=== PATIENT | male | born 1970 | race African-American/Black ===

== ENCOUNTER 2024-09-02 09:44 | Emergency (ER) | payer OTHER, SELFPAY ==
[2024-09-02 09:55] VITALS: BP 165/111; PULSE 90; RESP 16; TEMP 36.5; O2SAT 95; BMI 41.3
--- NOTE | 2024-09-02 10:03 | ECG_ITS ---
Test Reason : htn Blood Pressure : */* mmHG Vent. Rate : 80 BPM Atrial Rate : 80 BPM P-R Int : 152 ms QRS Dur : 78 ms QT Int : 380 ms P-R-T Axes : 29 22 33 degrees QTcB Int : 438 ms Normal sinus rhythm Normal ECG No previous ECGs available Referred By: Generic ED Physician Electronically Signed By: EUNICE KLEIN MD
[2024-09-02 10:21] LABS: MANUAL DIFF FLAG NO
[2024-09-02 10:23] LABS: Basophils Absolute Auto 0.1 X10*3/uL (0.0-0.2); Basophils Percent Auto 0.6 % (0-2); Eosinophils Absolute Auto 0.1 X10*3/uL (0.0-0.4); Eosinophils Percent Auto 1.1 % (0-4); Hematocrit 41.6 % (42.0-52.0); Imm Gran Abs Auto 0.03 X10*3/uL (0.00-0.03); Imm Gran Pct Auto 0.4 % (0.0-0.4); Lymphocytes Percent Auto 25.2 % (20-40); Mean Corpuscular HGB Conc 33.7 g/dl (31.0-36.0); Mean Corpuscular Hemoglobin 30.4 pg (27.0-33.0); Mean Corpuscular Volume 90.2 fL (80.0-98.0); Mean Platelet Volume 9.7 fL (9.4-12.4); Monocytes Absolute Auto 0.8 X10*3/uL (0.1-1.2); Monocytes Percent Auto 10.1 % (2-11); Neutrophils Absolute Auto 5.1 x10*3/uL (2.0-8.3); Neutrophils Percent Auto 62.6 % (45-73); Platelet Count 229 X10*3/uL (160-400); Red Blood Count 4.61 X10*6/uL (4.60-5.80); Red Cell Distribution Width 13.2 % (11.0-16.0); White Blood Count 8.1 X10*3/uL (4.8-10.8)
[2024-09-02 10:43] LABS: Troponin-I High Sensitivity 4.5 ng/L (<3.5-35.0)
[2024-09-02 10:44] LABS: Alanine Aminotransferase 30 U/L (0-40); Alkaline Phosphatase 79 U/L (39-117); Anion Gap 11 (12-20); Aspartate Amino Transferase 33 U/L (5-37); Bilirubin Total 0.3 mg/dL (0.0-1.0); Blood Urea Nitrogen 16 mg/dL (9-16); Calcium 8.7 mg/dL (8.4-10.2); Carbon Dioxide 24 mmol/L (22-29); Chloride 108 mmol/L (96-108); Creatinine Clr Calc Pharmacy 112.9; Estimated Glomerular Filt Rate > 60; Glucose Random 87 mg/dL (60-115); Potassium 3.8 mmol/L (3.3-5.1); Sodium 139 mmol/L (135-145); Total Protein 6.7 g/dL (6.5-8.0)
[2024-09-02 10:49] LABS: IDNOW Serial# 58CA691E; Strep A Nucleic Acid Negative (Negative)
[2024-09-02 11:15] LABS: Influenza A PCR NEGATIVE (Negative); Influenza B PCR NEGATIVE (Negative); Resp Syncy Virus RNA Qual PCR NEGATIVE (Negative); SARS COV2 PCR INHOUSE NEGATIVE (Negative)
--- NOTE | 2024-09-02 11:34 | ED.URI ---
HPI - URI/Sore Throat General Chief Complaint: Upper Respiratory Symptoms Stated Complaint: Sore throat Time Seen by Provider: 09/02/24 11:18 Source: patient and old records reviewed Mode of arrival: ambulatory Limitations: no limitations History of Present Illness ED Provider: ANABELLE SEBASTIAN Narrative: 54 yo male no known PMH but he doesn't go to the doctors he comes in today with c/o 2 days sore throat, chills, hurts to swallow. He does work at a factory. He has no n/v/d, no chest pain. He has taken OTC with some help. MD elicited complaint: sore throat Onset (ago): day(s) (2) Consistency: constant Severity: moderate Description of mucous: clear Able to tolerate fluids by mouth: Yes Exacerbating factors: swallowing Relieving factors: nothing Associated symptoms: chills Treatments prior to arrival: cold medicine Related Data Previous Rx's ?Medication ?Instructions ?Recorded amoxicillin 500 mg tablet 500 mg PO BID #20 tabs 09/02/24 hydrochlorothiazide 25 mg tablet 25 mg PO DAILY #30 tabs 09/02/24 Allergies Allergy/AdvReac Type Severity Reaction Status Date / Time No Known Allergies Allergy Verified 09/02/24 09:58 Review of Systems Review of Systems: Constitutional : positive Fever, positive Chills ENT/Mouth : positive sore throat, no runny nose Eyes: No Discharge Cardiovascular : No Chest Pain, No SOB Respiratory : No Cough, No Sputum Gastrointestinal : No Nausea, No Vomiting, No Diarrhea Genitourinary : No Dysuria, No Urinary Frequency Musculoskeletal : positive Myalgia Skin : No rash Neuro : No Headache all other systems reviewed and are negative [facility] Past Medical History Attestation statement: The following information was validated with the patient. Source: old records reviewed Medical History (Updated 09/02/24 @ 11:51 by Janneth Peraza DO) No pertinent past medical history Social History Social History (Updated 09/02/24 @ 11:51 by Janneth Peraza DO) Patient Tobacco Use Status: Never used Tobacco Physical Exam Vital Signs: Vital Signs: Last Vital Signs Temp 97.7 F 09/02/24 09:55 Pulse 90 09/02/24 09:55 Resp 16 09/02/24 09:55 BP 165/111 H 09/02/24 09:55 Pulse Ox 95 09/02/24 09:55 O2 Del Method Room Air 09/02/24 09:55 BMI result Body Mass Index 41.3 Appearance: Alert. Oriented X3. No acute distress. Eyes: Pupils equal, round and reactive to light. ENT: Pharynx moderate swelling of tonsils with white exudates and petechia on soft palate, uvula midline no other sig swelling normal voice no stridor tolerating secretions Neck: Normal inspection. Neck supple. CVS: Normal heart rate and rhythm. Pulses normal. Respiratory: No respiratory distress. Breath sounds normal. Abdomen: Soft and nontender. Skin: Skin warm and dry. Normal skin color. Normal skin turgor. Extremities: No lower extremity edema. No calf ttp Neuro: Oriented X 3. No motor deficit. No sensory deficit. 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 Differential Diagnosis Differential Diagnoses: The differential diagnosis associated with the presentation includes strep throat, viral syndrome untreated HTN Admission/Observation Consideration of admission/observation: Escalation of care including admission/observation considered not toxic can be managed as outpatient Lab Data [facility] Lab Attestation statement: I reviewed the patient's lab results. 09/02/24 10:16 09/02/24 10:16 Labs: Lab Results 09/02/24 Range/Units 10:16 WBC 8.1 (4.8-10.8) X10*3/uL RBC 4.61 (4.60-5.80) X10*6/uL Hgb 14.0 (14.0-18.0) g/dl Hct 41.6 L (42.0-52.0) % MCV 90.2 (80.0-98.0) fL MCH 30.4 (27.0-33.0) pg MCHC 33.7 (31.0-36.0) g/dl RDW 13.2 (11.0-16.0) % Plt Count 229 (160-400) X10*3/uL MPV 9.7 (9.4-12.4) fL Immature Gran % (Auto) 0.4 (0.0-0.4) % Neut % (Auto) 62.6 (45-73) % Lymph % (Auto) 25.2 (20-40) % [place] % (Auto) 10.1 (2-11) % Eos % (Auto) 1.1 (0-4) % Baso % (Auto) 0.6 (0-2) % Lymph # (Auto) 2.0 (1.2-4.9) X10*3/uL [place] # (Auto) 0.8 (0.1-1.2) X10*3/uL Eos # (Auto) 0.1 (0.0-0.4) X10*3/uL Baso # (Auto) 0.1 (0.0-0.2) X10*3/uL Abs Immat Gran (auto) 0.03 (0.00-0.03) X10*3/uL Absolute Neuts (auto) 5.1 (2.0-8.3) x10*3/uL Absolute Nucleated RBC 0.000 (0.0-0.012) X10*3/uL Nucleated RBC % (auto) 0.0 (0.0-0.2) /100WBC Sodium 139 (135-145) mmol/L Potassium 3.8 (3.3-5.1) mmol/L Chloride 108 (96-108) mmol/L Carbon Dioxide 24 (22-29) mmol/L Anion Gap 11 L (12-20) BUN 16 (9-16) mg/dL Creatinine 1.07 (0.5-1.4) mg/dL Estim Creat Clear Calc 112.9 Estimated GFR > 60 Random Glucose 87 (60-115) mg/dL Calcium 8.7 (8.4-10.2) mg/dL Total Bilirubin 0.3 (0.0-1.0) mg/dL AST 33 (5-37) U/L ALT 30 (0-40) U/L Alkaline Phosphatase 79 (39-117) U/L Troponin I High Sens 4.5 (<3.5-35.0) ng/L Total Protein 6.7 (6.5-8.0) g/dL Albumin 4.0 (3.5-5.0) g/dL Influenza Type A (PCR) NEGATIVE (Negative) Influenza Type B (PCR) NEGATIVE (Negative) RSV RNA Qual (PCR) NEGATIVE (Negative) SARS-CoV-2 RNA (RT-PCR) NEGATIVE (Negative) S. pyogenes GrpA CUATE Negative (Negative) Independent Interpretation I performed an independent interpretation of an: EKG Interpretation: Rate: 80 Rhythm: NSR [place]: normal Normal P waves. Normal JEAN-CLAUDE. Normal QRS complex. ST T wave : normal no SERENA qTC: 438 prior studies: no acute ischemia The study has been interpreted contemporaneously by me. . External Record Review External record reviewed: Outpatient record Prescription Management I considered prescription management with: Antibiotic and Other Discharge Plan Discharge Clinical Impression: Pharyngitis Patient Disposition: Home, Self-Care Instructions: Pharyngitis (ED), Chronic Hypertension (ED) Additional Instructions: labs, EKG reassuring your blood pressure is high - please get a cuff and measure if it remains over 140 top number after treatment please start medications call to follow up with your doctor return for worsening pain, difficulty breathing or swallowing and no improvement after 48 hours throw away tooth brush in 24 hours On amoxicillin, softer bowel movements are to be expected. Call your provider if you move your bowels more than 4 times a day, your bowel movements are almost all liquid, or you get a rash.? Prescriptions: New amoxicillin 500 mg tablet 500 mg PO BID Qty: 20 0RF hydrochlorothiazide 25 mg tablet 25 mg PO DAILY Qty: 30 0RF Interventions: ED Discharge Assessment Last Done: 09/02/24 11:47 Print Language: Faroese
[2024-09-02 11:47] VITALS: BP 171/110; PULSE 85; RESP 16; TEMP 36.5; O2SAT 98
--- OUTSIDE RECORDS SUMMARY | 2024-09-02 14:16 | XMS_ITS | Clinical Summary ---
Author Organization [facility] Address [address] [place] [address] Phone Care Team Providers Care Yarder Engineer Name Role Phone Physician, No Pcp Primary Care Provider Unavaila ble Allergies No known active allergies Medications No known medications Active Problems No known active problems Encounters Date Type Department Care Team Description 08/13/2024 - 08/13/2024 6:49 PM EDT Emergency [facility] Emergency [address] [place] [address] Discharge Disposition: ED Dismiss - Never Arrived 07/28/2024 12:05 PM EDT - 07/28/2024 2:58 PM EDT Emergency [facility] Emergency [address] [place] [address] Influenza B (Primary Dx); Viral syndrome Discharge Disposition: Home or Self Care from Last 3 Months Social History Tobacco Use Types Packs/Day Years Used Date Smoking Tobacco: Never Assessed Sex and Gender Information Value Date Recorded Sex Assigned at Male 07/28/2024 2:23 PM EDT Legal Sex Male 12:13 PM EST Gender Identity Male 07/28/2024 2:23 PM EDT Sexual Orientation Straight 07/28/2024 2: 23 PM EDT Obstetrics History Last Filed Vital Signs Vital Sign Reading Time Taken Comments Blood Pressure 141/79 07/28/2024 11:11 AM EDT Pulse 85 07/28/2024 11:11 AM EDT Temperature 38.6 ??C (101.5 ??F) 07/28/2024 11:11 AM EDT Respiratory Rate 16 07/28/2024 11:11 AM EDT Oxygen Saturation 96% 07/28/2024 11:11 AM EDT Inhaled Oxygen Concentration - - Weight 127 kg (280 lb) 07/28/2024 11:11 AM EDT Height 180.3 cm (5' 11 ) 07/28/2024 11:11 AM EDT Body Mass Index 39.05 07/28/2024 11:11 AM EDT Plan of Treatment Health Maintenance Due Date Last Done Comments DTaP,Tdap,and Td Vaccines (1 - Tdap) 1991 Hepatitis B Vaccines (1 of 3 - 19+ 3-dose series) 1991 Cholesterol Screening (Lipid Panel) 04/18/2022 Colorectal Cancer Screening: Colonoscopy 04/18/2022 Depression Screening 04/18/2022 HIV Screening 04/18/2022 Hepatitis C Screening 04/18/2022 Social Influencers of Health Screening 04/18/2022 Pneumococcal Vaccine: 50+ Ye ars (1 of 1 - PCV) 2022 Zoster Vaccines (1 of 2) 2022 COVID-19 Vaccine (1 - 2023-2 5 season) 2024 Influenza Vaccine (Season Ended) 2025 HIB Vaccines Aged Out No longer eligi ble based on patient's age to complete this topic HPV Vaccines Aged Out No longer eligi ble based on patient's age to complete this topic Hepatitis A Vaccines Aged Out No long er eligible based on patient's age to complete this topic IPV Vaccines Aged Out No longer eligi ble based on patient's age to complete this topic MMR Vaccines Aged Out No longer eligi ble based on patient's age to complete this topic Meningococcal ACWY Vaccine Aged Out N o longer eligible based on patient's age to complete this topic Meningococcal B Vaccine Aged Out No l onger eligible based on patient's age to complete this topic Pneumococcal Vaccine: Pediat rics (0 to 5 Years) and At-Risk Patients (6 to 64 Years) Aged Out No longer eligible b ased on patient's age to complete this topic RSV Immunization Patients Un nannette 20 months Aged Out No longer eligible b ased on patient's age to complete this topic Varicella Vaccines Aged Out No longer eligible based on patient's age to complete this topic Procedures Procedure Name Priority Date/Time Associated Diagnosis Comments [id number], RSV, FLU A AND B QUALITATIVE RT-PCR, INTERNAL LAB STAT 07/28/2024 11:13 AM EDT from Last 3 Months Results * (ABNORMAL) [id number], RSV, Influenza A and B qualitative RT-PCR (07/28/2024 11:13 AM EDT) Influenza A PCR Not Detected Not Detected LAB MICROBIOLOGY METHOD 07/28/2024 12:20 PM EDT [facility] Influenza B PCR Detected(A) Not Detected LAB MICROBIOLOGY METHOD 07/28/2024 12:20 PM EDT [facility] RSV PCR Not Detected Not Detected LAB MICROBIOLOGY METHOD 07/28/2024 12:20 PM EDT [facility] SARS COV-2 Not Detected Not Detected LAB MICROBIOLOGY METHOD 07/28/2024 12:20 PM EDT [facility] Swab Both anterior nares / Unknown Non-blood Collection / Unknown 07/28/2024 11:13 AM EDT 07/28/2024 11:30 AM EDT Narrative [facility] - 07/28/2024 12:20 PM EDT Disclaimer: ??Testing was performed using the [employer] GeneXpert Xpress SARS-CoV-2 _Flu_RSV PLUS PCR assay. ??The manner in which this information is used to guide patient care is the responsibility of the healthcare provider. ??Results should be correlated with the clinical history, epidemiological data, and other data available to the clinician evaluating the patient. ??Negative results do not preclude infection. ??This test has been authorized by the FDA under an Emergency Use Authorization (EUA). ??This test is only authorized for the duration of time the declaration that circumstances exist justifying the authorization of the emergency use of in vitro diagnostic tests for detection of SARS-CoV-2 virus and/or diagnosis of COVID-19 infection under section 564 (b) (1) of the Act, 21 U.S.C 360bbb-3 (b) (1), unless the authorization is terminated or revoked sooner. ?? Reference Range: Not Detected Fact sheet for Healthcare providers can be found at https://www.fda.gov/media/474226/download. ?? Fact sheet for Healthcare patients can be found at https://www.TixAlert.gov/media/315083/download. us Mitchell Sweeney MD LAB MICROBIOLOGY - GENERA L ORDERABLES Final Result [facility] [address] [place] [address], [place] [phone] from Last 3 Months Insurance [employer] Care Teams Yarder Engineer Relationship Specialty Start Date End Date Physician, No Pcp PCP - General 07/28/24
--- OUTSIDE RECORDS SUMMARY | 2024-09-02 14:16 | XMS_ITS | Clinical Summary ---
Author Organization [facility] Address [address] [place] [address] Care Team Providers Care Wine Specialist Name Role Phone Jamaal Garner Primary Care Provider [phone] Allergies No known active allergies Medications multivitamin with minerals (ONE-A-DAY MAXIMUM FORMULA ORAL) Take by mouth. Active garlic 1 mg capsule Take by mouth. Active Active Problems No known active problems Family History Medical History Relation Comments Cancer Father Diabetes Father COPD Mother Stroke Mother's Brother Relation Status Comments Father Mother Mother's Brother Social History Tobacco Use Types Packs/Day Years Used Date Smoking Tobacco: Every Day Cigarettes 0.5 10 Smokeless Tobacco: Never Tobacco Cessation:Ready to Q uit: No; Counseling Given: Yes Alcohol Use Standard Drinks/Week Comments Never 0 (1 standard drink = 0.6 oz pur e alcohol) AUDIT-C Answer Date Recorded Frequency of Alcohol Consumption Never 06/20/2019 Average Number of Drinks Not on file 020 Frequency of Binge Drinking Not on file 05/23 Sex and Gender Information Value Date Recorded Sex Assigned at Not on file Legal Sex Male 7:37 AM MST Gender Identity Not on file Sexual Orientation Not on file Last Filed Vital Signs Vital Sign Reading Time Taken Comments Blood Pressure 130/94 06/20/2019 8:51 AM EST Pulse 77 06/20/2019 8:06 AM EST Temperature 36.4 ??C (97.6 ??F) 06/20/2019 8:06 AM ES T Respiratory Rate 16 06/20/2019 8:06 AM EST Oxygen Saturation 98% 06/20/2019 8:06 AM EST Inhaled Oxygen Concentration - - Weight 147 kg (323 lb 3.2 oz) 06/20/2019 8:06 AM EST Height 175.8 cm (5' 9.21 ) 06/20/2019 8:06 AM ES T Body Mass Index 47.43 06/20/2019 8:06 AM EST Plan of Treatment Health Maintenance Due Date Last Done Comments CT Colonography 1972 Cologuard 1972 Colonoscopy 1972 Colorectal Cancer Screening 1972 FOBT/FIT 1972 Hepatitis C Screening 1972 Sigmoidoscopy 1972 PHQ-9 Depression Screen 1984 Complete Annual HRA 1990 RUTHANN-7 Anxiety Screen 1990 DTaP,Tdap,and Td Vaccines (1 - Tdap) 1991 Pneumococcal Vaccine: 50+ Years (1 of 2 - PCV) 992 Annual Preventive Exam 06/20/2020 06/20/2019 Zoster Vaccines (1 of 2) 2022 COVID-19 Vaccine (1 - 2023-25 season) 2024 Influenza Vaccine (Season Ended) 2025 RSV Vaccine (SCDM) (1 - 1-dose 75+ series) 2047 Insurance [employer] Care Teams Wine Specialist Relationship Specialty Start Date End Date Jamaal Garner PA [address] [place] [address] PCP - General Family Medicine 06/20/19
== END 2024-09-02 11:48 | disposition home or self-care (01) ==
PROVIDERS: Emergency Provider Emergency Medicine
DX: J02.9 Acute pharyngitis, unspecified (principal); R03.0 Elevated blood-pressure reading, without diagnosis of hypertension; Z03.818 Encounter for observation for suspected exposure to other biological agents ruled out
CPT/HCPCS: 0241U; 80053; 84484; 85025; 87651; 93005; 99283

== ENCOUNTER → 2024-09-02 10:03 | Outpatient (BNV) | payer OTHER, SELFPAY | PROVIDERS: Emergency Provider Emergency Medicine; Visit Provider Internal Medicine Cardiovascular Disease | DX: I10 Essential (primary) hypertension (principal) | CPT/HCPCS: 93010 ==

== ENCOUNTER 2024-09-29 11:18 | Emergency (ER) | payer OTHER, SELFPAY ==
[2024-09-29 11:43] VITALS: BP 163/101; PULSE 92; RESP 18; TEMP 36.3; O2SAT 99; BMI 42.0
--- NOTE | 2024-09-29 11:49 | ED_ITS ---
HPI - General Adult General Chief complaint: General Medical Stated complaint: Med Refill Time Seen by Provider: 09/29/24 11:45 Source: patient, RN notes reviewed and old records reviewed Mode of arrival: ambulatory Limitations: no limitations History of Present Illness ED Provider: Radha HPI narrative: 54-year-old male past medical history significant for high blood pressure presents for evaluation of medication refill. He was seen here for a sore throat 1 month ago and was started on hydrochlorothiazide 25 mg daily. He reports he has been compliant with the medication that his blood pressure has still been high. He called to make an appointment with a primary doctor but was given appointment February 20, 2025. he is here for a medication refill because he can not get a Disease doctor yet denies any chest pain, headache Related Data Previous Rx's ?Medication ?Instructions ?Recorded amoxicillin 500 mg tablet 500 mg PO BID #20 tabs 09/02/24 hydrochlorothiazide 25 mg tablet 25 mg PO DAILY #30 tabs 09/02/24 hydrochlorothiazide 25 mg tablet 25 mg PO DAILY #90 tabs 09/29/24 Allergies Allergy/AdvReac Type Severity Reaction Status Date / Time No Known Allergies Allergy Verified 09/29/24 11:47 Review of Systems Constitutional: Constitutional: Denies body ache(s), Denies chills and Denies headache(s) Eyes: Eyes: Denies blurry vision ENT: Denies vertigo, Denies dizziness, Denies headache(s) and Denies hoarseness Cardiovascular: Cardiovascular: Denies chest pain Gastrointestinal: Gastrointestinal: Denies abdominal pain, Denies nausea and Denies vomiting Musculoskeletal: Musculoskeletal: Denies back pain Integumentary/Breasts: Skin/Breast: Denies rash Neurologic: Denies vertigo, Denies dizziness and Denies headache(s) [facility], [facility] Past Medical History Medical History (Updated 09/29/24 @ 11:50 by Oseas Garcia) No pertinent past medical history Social History Social History (Updated 09/02/24 @ 11:51 by Janneth Peraza DO) Patient Tobacco Use Status: Never used Tobacco Advance Directives: No Advance Directives Information Provided: Yes Do you have a plan to hurt others: No Plan Physical Exam ED Vital Signs: Vital Signs - 24 hr 09/29/24 11:43 Temperature 97.3 F Pulse Rate 92 Respiratory Rate 18 Blood Pressure 163/101 H Pulse Oximetry 99 Oxygen Delivery Method Room Air BMI result Body Mass Index 42.0 Const General: healthy appearing, comfortable, no acute distress, alert and awake Nutritional Appearance: well nourished Orientation/consciousness: patient oriented x3 HENMT Head: Yes normocephalic and Yes atraumatic Eyes Eyelids: Yes eyelids normal Conjunctivae: conjunctivae normal Sclerae: sclerae normal Corneas: corneas normal Pupils: Equal, round and reactive pupils present EOM: EOMs intact bilaterally Neck Neck: Yes full ROM Resp Effort & Inspection: normal respiratory effort, able to speak in complete sentences and not labored Cardio Rate: regular rate Rhythm: regular rhythm Skin General skin exam: elasticity normal Neuro General: patient oriented x3 Cranial nerves: Yes Equal, round and reactive pupils present and Yes Bilaterally intact EOM present Cognition (Neuro): normal cognition Extrem Other: Moving all extremities well without any obvious deformities Medical Decision Making Medical Decision Making MDM Narrative: 54-year-old male presents for evaluation of a medication refill. He has been on hydrochlorothiazide for a month and a without any complications or adverse reactions. He denies any chest pain, headache. Blood pressure still slightly elevated to 161/101 in triage. Plan for refill of his medication. I agreed to give him a 90 day supply as he has had no issues in the last 30 days and he can not see his doctor for several months Differential Diagnosis Differential Diagnoses: The differential diagnosis associated with the presentation includes high blood pressure Medication refill Hypertension Elevated blood pressure Discharge Plan Discharge Clinical Impression: Hypertension Patient Disposition: Home, Self-Care Instructions: Heart Healthy Diet (ED), Hypertension (ED) Additional Instructions: continue your hydrochlorothiazide daily as prescribed. Follow-up with your primary doctor when you are able. Return for new or worsening symptoms Prescriptions: New hydrochlorothiazide 25 mg tablet 25 mg PO DAILY Qty: 90 0RF No Action amoxicillin 500 mg tablet 500 mg PO BID Qty: 20 0RF hydrochlorothiazide 25 mg tablet 25 mg PO DAILY Qty: 30 0RF Print Language: Slovak
[2024-09-29 12:32] VITALS: BP 163/101; PULSE 92; RESP 18; TEMP 36.3; O2SAT 99
--- OUTSIDE RECORDS SUMMARY | 2024-09-29 12:37 | XMS_ITS | Clinical Summary ---
Author Organization [facility] Address [address] [place] [address] Care Team Providers Care Fireman Helper Name Role Phone Jamaal Garner Primary Care Provider [phone] Allergies No known active allergies Medications multivitamin [...] 75+ series) 2047 Insurance [employer] Care Teams Fireman Helper Relationship Specialty Start Date End Date Jamaal Garner PA [address] [place] [address] PCP - General Family Medicine 06/20/19
--- OUTSIDE RECORDS SUMMARY | 2024-09-29 12:37 | XMS_ITS | Clinical Summary ---
Author Organization [facility] Address [address] [place] [address] Phone Care Team Providers Care Sample Clerk Name Role Phone Physician, No Pcp Primary Care Provider Unavaila ble Allergies No known active allergies Medications No known medications Active Problems No known active problems Encounters Date Type Department Care Team Description 08/13/2024 - 08/13/2024 6:49 PM EDT Emergency [facility] Emergency [address] [place] [address] Discharge Disposition: ED Dismiss - Never Arrived 07/28/2024 12:05 PM EDT - 07/28/2024 2:58 PM EDT Emergency [facility] Emergency [address] [place] [address] Influenza B (Primary Dx); Viral [...] Procedure Name Priority Date/Time Associated Diagnosis Comments [id number], RSV, FLU A AND B QUALITATIVE RT-PCR, INTERNAL LAB STAT 07/28/2024 11:13 AM EDT from Last 3 Months Results * (ABNORMAL) [id number], RSV, Influenza A and B qualitative RT-PCR (07/28/2024 11:13 AM EDT) Influenza A PCR Not Detected Not Detected LAB MICROBIOLOGY METHOD 07/28/2024 12:20 PM EDT [facility] Influenza B PCR Detected(A) Not Detected LAB MICROBIOLOGY METHOD 07/28/2024 12:20 PM EDT [facility] RSV PCR Not Detected Not Detected LAB MICROBIOLOGY METHOD 07/28/2024 12:20 PM EDT [facility] SARS COV-2 Not Detected Not Detected LAB MICROBIOLOGY METHOD 07/28/2024 12:20 PM EDT [facility] Swab Both anterior nares / Unknown Non-blood Collection / Unknown 07/28/2024 11:13 AM EDT 07/28/2024 11:30 AM EDT Narrative [facility] - 07/28/2024 12:20 PM EDT Disclaimer: ??Testing was performed using the [employer] GeneXpert Xpress SARS-CoV-2 _Flu_RSV PLUS PCR assay. [...] for Healthcare providers can be found at https://www.fda.gov/media/165750/download. ?? Fact sheet for Healthcare patients can be found at https://www.Gingr.gov/media/893153/download. us Mitchell Sweeney MD LAB MICROBIOLOGY - GENERA L ORDERABLES Final Result [facility] [address] [place] [address], [place] [phone] from Last 3 Months Insurance [employer] Care Teams Sample Clerk Relationship Specialty Start Date End Date Physician, No Pcp PCP - General 07/28/24
== END 2024-09-29 12:32 | disposition home or self-care (01) ==
PROVIDERS: Emergency Provider Emergency Medicine Emergency Medical Services
DX: I10 Essential (primary) hypertension (principal); Z76.0 Encounter for issue of repeat prescription
CPT/HCPCS: 99282

== ENCOUNTER 2025-01-01 12:46 | Emergency (ER) | payer OTHER, SELFPAY ==
[2025-01-01 13:01] VITALS: BP 152/92; PULSE 96; RESP 18; TEMP 36.8; O2SAT 99; BMI 42.8
--- NOTE | 2025-01-01 13:03 | ED_ITS ---
HPI - General Adult General Chief complaint: Medical Clearance Stated complaint: Med refill Time Seen by Provider: 01/01/25 13:09 Source: patient and RN notes reviewed Mode of arrival: ambulatory Limitations: no limitations History of Present Illness ED Provider: Annabelle Aragon PA-C HPI narrative: This is a 54-year-old male, with a past medical history of hypertension, who presents emergency department for medication refill. Patient states that he ran out of his hydrochlorothiazide this morning, and states that his primary care appointment is not until February. Patient states that he is feeling well. He has been monitoring his blood pressure at home twice a day. He denies any dizziness, headaches, blurred vision, chest pain or shortness of breath. No other complaints or concerns at this time. MD complaint: Medication refill Related Data Previous Rx's ?Medication ?Instructions ?Recorded amoxicillin 500 mg tablet 500 mg PO BID #20 tabs 09/02 hydrochlorothiazide 25 mg tablet 25 mg PO DAILY #30 ta bs 09/02/24 hydrochlorothiazide 25 mg tablet 25 mg PO DAILY #90 ta bs 09/29/24 hydrochlorothiazide 25 mg tablet 25 mg PO DAILY 90 day s #90 tabs 01/01/25 Allergies Allergy/AdvReac Type Severity Reaction Status Date / Time No Known Allergies Allergy Verified 01/01/25 13:04 Review of Systems Review of Systems: Yes all other systems are reviewed and are negative Constitutional: Constitutional: Reports as per [facility] Past Medical History Medical History (Updated 01/01/25 @ 13:04 by MICHELLE Pringle) No pertinent past medical history Social History Social History (Updated 09/02/24 @ 11:51 by Janneth Peraza DO) Patient Tobacco Use Status: Never used Tobacco Do you have a plan to hurt others: No Plan Physical Exam ED Vital Signs: Vital Signs - 24 hr 01/01/25 13:01 Temperature 98.2 F Pulse Rate 96 Respiratory Rate 18 Blood Pressure 152/92 H Pulse Oximetry 99 Oxygen Delivery Method Room Air BMI result Body Mass Index 42.8 Const General: cooperative, comfortable and no acute distress Orientation/consciousness: patient oriented x3 Limitations: no limitations HENMT Head: Yes normal to inspection, Yes normocephalic and Yes atraumatic Ears: hearing grossly normal bilaterally General nose exam: Normal external nose present Face and sinus: Yes normal facial exam Mouth: Normal oral and palatal mucosa present, oropharynx normal and moist mucous membranes Throat: Yes posterior oropharynx normal Eyes General: appearance normal, both eyes and all related structures Eyelids: Yes eyelids normal Conjunctivae: conjunctivae normal Sclerae: sclerae normal Pupils: Equal, round and reactive pupils present EOM: EOMs intact bilaterally Neck Neck: Yes normal visual inspection, Yes full ROM and Yes no lymphadenopathy Lymphatic: no lymphadenopathy noted Chest Chest palpation & inspection: normal inspection of the chest Resp Effort & Inspection: normal respiratory effort and able to speak in complete sentences Auscultation: clear to auscultation bilaterally, no crackles, no rales, no rhonchi and no wheezes Cardio Rate: regular rate Rhythm: regular rhythm GI Inspection: Yes normal to inspection Skin General skin exam: no rashes or lesions noted Trauma: no lacerations or abrasions Wounds: no wounds Neuro General: patient oriented x3 and moves all extremities Cranial nerves: Yes Equal, round and reactive pupils present Extrem General: Yes normal to inspection Right upper extremity: normal to inspection Left upper extremity: normal to inspection Right lower extremity: normal to inspection Left lower extremity: normal to inspection Medical Decision Making Medical Decision Making MDM Narrative: This is a 54-year-old male who presents emergency department for medication refill. Patient currently on hydrochlorothiazide 25 mg tablets daily for hypertension. Patient is well-appearing, appears to be under no acute distress. He has no current symptoms, blood pressure 152/92 this morning. He does not have an appointment with his primary care physician until February. He states that his blood pressure has been running in the 130s over 90s at home. Discussed the importance of following up with his primary in February, refilled hydrochlorothiazide. Given strict return precautions, he understands and agrees with plan. Patient stable for discharge. Differential Diagnosis Differential Diagnoses: The differential diagnosis associated with the presentation includes Medication refill, medication noncompliance, hypertension, hypertensive urgency- unlikely Discharge Plan Discharge Clinical Impression: Medication refill Patient Disposition: Home, Self-Care Instructions: Heart Healthy Diet (ED), How to Take a Blood Pressure Reading (ED), Hypertension (ED), Medicine Refill (ED) Additional Instructions: You were seen in the ER for a medication refill. Please take prescribed medication as directed. Please follow up with your primary care physician for future refills. Continue taking your blood pressure at home therefore your primary care physician can monitor your blood pressure when they see you in their office. If any new or worsening symptoms occur including but not limited to chest pain, shortness of breath, please seek emergent care. Prescriptions: New hydrochlorothiazide 25 mg tablet 25 mg PO DAILY 90 Days Qty: 90 0RF No Action amoxicillin 500 mg tablet 500 mg PO BID Qty: 20 0RF hydrochlorothiazide 25 mg tablet 25 mg PO DAILY Qty: 30 0RF hydrochlorothiazide 25 mg tablet 25 mg PO DAILY Qty: 90 0RF Print Language: Taiwanese
[2025-01-01 13:24] VITALS: BP 152/92; PULSE 96; RESP 18; TEMP 36.8; O2SAT 99
--- OUTSIDE RECORDS SUMMARY | 2025-01-01 14:12 | XMS_ITS | Clinical Summary ---
Author Organization [facility] Address [address] [place] [address] Care Team Providers Care Mounted Police Officer Name Role Phone Jamaal Garner Primary Care Provider [phone] Allergies No known active allergies Medications multivitamin [...] on file Legal Sex Male 7:[address] [facility] Gender Identity Not on file Sexual Orientation Not on file Last Filed Vital Signs Vital Sign Reading Time Taken Comments Blood Pressure 130/94 06/20/2019 8:51 AM EST Pulse 77 06/20/2019 8:06 AM EST Temperature 36.4 C (97.6 F) 06/20/2019 8:06 AM EST Respiratory Rate 16 06/20/2019 8:06 AM EST [...] (1 - 2023-25 season) 2024 Influenza Vaccine (#1) 2025 RSV Vaccine (SCDM) (1 - 1-dose 75+ series) 2047 Insurance [employer] Care Teams Mounted Police Officer Relationship Specialty Start Date End Date Jamaal Garner PA [address] [place] [address] PCP - General Family Medicine 06/20/19
--- OUTSIDE RECORDS SUMMARY | 2025-01-01 14:12 | XMS_ITS | Clinical Summary ---
Author Organization [facility] Address [address] [place] [address] Phone Care Team Providers Care Senior Financial Reporting Accountant Name Role Phone Physician, No Pcp Primary Care Provider Unavaila ble Allergies No known active allergies Medications No known medications Active Problems No known active problems Social History Tobacco Use Types Packs/Day Years [...] 85 07/28/2024 11:11 AM EDT Temperature 38.6 C (101.5 F) 07/28/2024 11:11 AM EDT Respiratory Rate 16 [...] Panel) 04/18/2022 Colorectal Cancer Screening: Colonoscopy 04/18/2022 HIV Screening 04/18/2022 Hepatitis C Screening 04/18/2022 Social Influencers of Health Screening 04/18/2022 Pneumococcal Vaccine: 50+ Ye ars (1 of 1 - PCV) 2022 Zoster Vaccines (1 of 2) 2022 COVID-19 Vaccine (1 - 2023-2 5 season) 2024 Depression Screening 05/21/2024 Influenza Vaccine (#1) 2025 HIB Vaccines Aged Out No longer [...] on patient's age to complete this topic Insurance [employer] Care Teams Senior Financial Reporting Accountant Relationship Specialty Start Date End Date Physician, No Pcp PCP - General 07/28/24
== END 2025-01-01 13:29 | disposition home or self-care (01) ==
PROVIDERS: Emergency Provider Emergency Medicine
DX: I10 Essential (primary) hypertension (principal); Z76.0 Encounter for issue of repeat prescription
CPT/HCPCS: 99282

== ENCOUNTER 2025-02-20 09:46 | Outpatient (AMB) | payer OTHER, SELFPAY ==
[2025-02-20 10:00] VITALS: BP 118/70; PULSE 110; RESP 18; TEMP 36.2; O2SAT 97; BMI 42.8
--- NOTE | 2025-02-20 10:00 | A.OFFPC_ITS ---
Vital Signs 02/20/25 10:00 Height 5 ft 11 in Weight 307 lb 4 oz BMI 42.8 BP 118/70 Blood Pressure Location Lt brachial Position Sitting Respiration 18 Pulse 110 H Pulse Source Pulse Oximeter Temp 97.1 F Temp Source Temporal Artery Scan Pulse Oximetry (%) 97 Oxygen Delivery Method Room Air Intake Visit Reasons: [facility] Associate Research Scientist Required: No Accompanied by: Self / Same As Patient Allergies No Known Allergies Allergy (Verified 02/20/25 10:26) Medication List - Last Reconciled 02/20/25 by LATISHA Guardado hydrochlorothiazide 25 mg PO DAILY 90 days Tobacco use date assessed: 02/20/25 Dental Screening Dental Screen Date: 02/20/25 Did you have a dental visit in the last 12 months?: Yes Did you have a dental problem in the last 6 months where you did not have access to dental care?: No Was dental information given to patient?: Patient has dentist HPI [facility] HPI Details Previous PCP: Has not had a PCP in a long time Last visit: over 10 years Last PE: for a while Specialist: no OBGYN:n/a Colonoscopy: never had one, no family history of colon cancer Past medical history: htn Medications:hydrochlorothiazide 25 mg daily Family HX: Father DM, esrd, Problem: Workout 2-3 days a week The patient is a 54-year-old male presenting to [facility]. He is here with concerns for hypertension management and preventative care. The patient reports a history of hypertension, which does not run in his family, and is currently managed with hydrochlorothiazide 25 mg daily. He has been monitoring his blood pressure at home, noting fluctuations, with a recent reading of 118/70 mmHg, indicating improvement. The patient acknowledges the importance of medication adherence and lifestyle modifications, including reducing salt intake and quitting smoking. The patient has not had a primary care physician for over 10 years and has not undergone a physical examination in the past year. He expresses interest in preventative care, specifically a colonoscopy, despite no family history of colon cancer. [facility] Medical History (Updated 02/20/25 @ 12:02 by LATISHA Guardado) Smoker No pertinent past medical history Family History (Updated 02/20/25 @ 12:01 by LATISHA Guardado) Father Diabetes mellitus End stage renal disease Social History Household Members: None Housing: Apartment Alcohol intake: never Patient Tobacco Use Status: Current everyday Tobacco user Tobacco use type: Cigarette e-Cigarette/Vaping Use: Never Used Current occupational status: employed Current occupation: [employer] Cognitive needs: No Hearing needs: No Vision needs: No Questionnaire PHQ-9 Over the last 2 weeks, how often have you been bothered by any of the following problems? 1. Little interest or pleasure in doing things: not at all 2. Feeling down, depressed, or hopeless: not at all 3. Trouble falling or staying asleep, or sleeping too much: not at all 4. Feeling tired or having little energy: not at all 5. Poor appetite or overeating: not at all 6. Feeling bad about yourself - or that you are a failure or have let yourself or your family down: not at all 7. Trouble concentrating on things, such as reading the newspaper or watching television: not at all 8. Moving or speaking so slowly that other people could have noticed. Or the opposite - being so fidgety or restless that you have been moving around a lot more than usual: not at all 9. Thoughts that you would be better off or of hurting yourself in some way: not at all Total score: 0 Source: Developed by Drs. Jimbo Stauffer, Fidelia Uriarte, Julien John and colleagues, with an educational shiloh from [employer]. Thrive Questionnaire Date Thrive assessed: 02/20/25 I am a: Patient What is your living situation today?: I have a steady place to live Within the past 12 months, did the food you bought not last and you didn't have the money to get more?: Never true Within the past 12 months, did you worry whether your food would run out before you got money to buy more?: Never true Do you have trouble paying for medicines?: No Do you have trouble getting transportation to medical appointments?: No Do you have trouble paying your heating and electricity bill?: No Do you have trouble taking care of your child, family member or friend?: No Do you have trouble with day-to-day activities such as bathing, preparing meals, shopping, managing finances, etc.?: No Are you currently unemployed and looking for a job?: No Are you interested in more education?: No Please select the resources that you would like help with: None THRIVE Score: 0 AUDIT C Alcohol Use Questionnaire (AUDIT-C) 1. How often do you have a drink containing alcohol?: Never Total Score: 0 RUTHANN-7 AMB Questionnaire RUTHANN-7 Date RUTHANN - 7 assessed: 02/20/25 Feeling nervous, anxious, or on edge: 0 = Not at all Not being able to stop or control worryin = Not at all Worrying too much about different things: 0 = Not at all Trouble relaxin = Not at all Being so restless that it is hard to sit still: 0 = Not at all Becoming easily annoyed or irritable: 0 = Not at all Feeling afraid as if something awful might happen: 0 = Not at all Total RUTHANN-7 score (0-4 normal; 5-9 mild; 10-14 moderate; 15-21 severe): 0 Source: Developed by Drs. Jimbo Stauffer, Fidelia Uriarte, Julien John and colleagues, with an educational shiloh from [employer]. Review of Systems Const Denies headache(s) Eyes Denies loss of vision ENT Denies vertigo, Denies dizziness, Denies headache(s) and Denies sore throat Card Denies chest pain, Denies leg edema and Denies lightheadedness Resp Denies cough, Denies hemoptysis and Denies wheezing GI Denies abdominal pain, Denies melena, Denies constipation, Denies diarrhea and Denies vomiting Denies dysuria, Denies urinary frequency and Denies urinary urgency Musc Denies arthralgias, Denies joint swelling, Denies numbness and Denies tingling Neuro Denies Abnormal speech present, Denies behavioral changes, Denies vertigo, Denies dizziness, Denies headache(s), Denies loss of vision, Denies memory loss, Denies numbness and Denies tingling Psych Denies anxiety, Denies behavioral changes, Denies depression, Denies memory loss and Denies panic attacks Jose Daniel/Lymph Denies easy bleeding and Denies easy bruising Aller/Immun Denies wheezing Physical exam (Primary Care) Vital Signs: Last Vital Signs Temp 97.1 F 02/20/25 10:00 Pulse 110 H 02/20/25 10:00 Resp 18 02/20/25 10:00 BP 118/70 02/20/25 10:00 Pulse Ox 97 02/20/25 10:00 Oxygen Delivery Method Room Air 02/20/25 10:00 BMI result Body Mass Index 42.8 Tobacco/Smoking Status: Tobacco use Status Tobacco use date assessed 02/20/25 02/20/25 10:05 Patient Tobacco Use Status Never used Tobacco 02/20/25 10:05 e-Cigarette/Vaping Use Never Used 02/20/25 10:05 PHQ-9: PHQ-9 Score PHQ-9: Total score 0 02/20/25 10:12 Thrive Assessment: Date of Thrive Assessment Date Thrive assessed 02/20/25 02/20/25 10:05 Const General: healthy appearing, no acute distress, alert and awake Nutritional Appearance: well nourished Orientation/consciousness: oriented to person, oriented to place and oriented to time HENMT Ears: TM's normal bilaterally General nose exam: Normal nasal mucous membranes and turbinates present Eyes Conjunctivae: conjunctivae normal Sclerae: sclerae normal Pupils: Equal, round and reactive pupils present Neck Neck: Yes no lymphadenopathy and Yes no JVD Thyroid: Thyroid normal Carotids: no bruits Resp Effort & Inspection: normal respiratory effort and not tachypneic Auscultation: no crackles, no rales, no rhonchi and no wheezes Cardio Rate: regular rate Rhythm: regular rhythm Heart sounds: no murmurs and normal S1 and S2 GI Palpation (GI): Soft to palpation, nontender, no hepatomegaly and no splenomegaly Auscultation: normal bowel sounds Skin General skin exam: no rashes or lesions noted and dry skin Neuro General: oriented to person, oriented to place and oriented to time Cranial nerves: Yes Equal, round and reactive pupils present Speech: No Abnormal speech present Gait exam (Neuro): Normal gait present Motor exam (neuro): no tremor noted Extrem Right upper extremity: full ROM Left upper extremity: full ROM Right lower extremity: full ROM; no edema Left lower extremity: full ROM; no edema Psych Mental Status: mental status grossly normal Speech and movement: Normal speech and movement present Affect: normal affect Attitude: cooperative Thought process: Normal thought process present Coding Level of Care Code New Pt Level 3 (22038) Diagnoses Hypertension, unspecified type I10 Hypertension type: unspecified Encounter to establish care with new provider Z76.89 Smoker F17.200 Time Spent (min) 34 Assessment & Plan Assessment & Plan (1) Hypertension: Code(s): I10 - Essential (primary) hypertension Category: Medical Qualifiers: Hypertension type: unspecified Qualified Code(s): I10 - Essential (primary) hypertension Plan: The patient is advised to continue taking hydrochlorothiazide 25 mg daily to manage blood pressure. Lifestyle modifications, including reducing salt intake and quitting smoking, are recommended to further control hypertension. Regular monitoring of blood pressure at home is encouraged to track fluctuations and ensure effective management. (2) Encounter to establish care with new provider: Code(s): Z76.89 - Persons encountering health services in other specified circumstances Category: Medical Plan: Patient has not had a PCP in a long time. He is establishing care today, his main concern is hypertension and smoking. We will order labs to further evaluate the patient condition. Patient is 54 years old and has not for had a colonoscopy. We will put in a referral with GI. (3) Smoker: Code(s): F17.200 - Nicotine dependence, unspecified, uncomplicated Category: Social Hx Plan: Encouraged smoking cessation. Varenicline tartrate (Chantix starting month pack) ordered Plan Patient to return in 7 weeks for complete physical Orders: Orders Complete Blood Count Auto Diff Today Z00.00 - Encounter for general adult medical examination without abnormal findings Comprehensive [place]. Panel Fast Today Z00.00 - Encounter for general adult medical examination without abnormal findings Vitamin D 25-OH Total Today Z00.00 - Encounter for general adult medical examination without abnormal findings PSA,Total (Free>4and<10) Today Z00.00 - Encounter for general adult medical examination without abnormal findings TSH reflex Free T4 Today Z00.00 - Encounter for general adult medical examination without abnormal findings UA CC w/rflx Micro + Cult Today Z00.00 - Encounter for general adult medical examination without abnormal findings Lipid Panel Today Z00.00 - Encounter for general adult medical examination without abnormal findings Referrals Gastroenterology Referral Z12.11 - Encounter for screening for malignant neoplasm of colon Medications: New varenicline tartrate (Chantix Starting Month Box) PO PER PKG DIR 53 ea 0RF nicotine dependance Refilled hydrochlorothiazide 25 mg PO DAILY 90 tabs 3RF 90 days
--- OUTSIDE RECORDS SUMMARY | 2025-02-20 10:22 | XMS_ITS | Clinical Summary ---
Author Organization [facility] Address [address] [place] [address] Phone Care Team Providers Care Insurance Loss Control Surveyor Name Role Phone Physician, No Pcp Primary [...] Health Maintenance Due Date Last Done Comments Colorectal Cancer Screening: Colonoscopy 1972 DTaP,Tdap,and Td Vaccines (1 - Tdap) 1991 Hepatitis B Vaccines (1 of 3 - 19+ 3-dose series) 1991 Cholesterol Screening (Lipid Panel) 04/18/2022 HIV Screening 04/18/2022 Hepatitis C Screening 04/18/2022 Social Influencers of Health Screening 04/18/2022 Pneumococcal Vaccine: 50+ Ye ars (1 of 1 - PCV) 2022 Zoster Vaccines (1 of 2) 2022 Depression Screening 05/21/2024 COVID-19 Vaccine (1 - 2023-2 5 season) 2025 Influenza Vaccine (#1) 2025 RSV Immunization Adult Patie nts (1 - 1-dose 75+ series) 2047 HIB Vaccines Aged Out No longer eligi [...] complete this topic Insurance [employer] Care Teams Insurance Loss Control Surveyor Relationship Specialty Start Date End Date Physician, No Pcp PCP - General 07/28/24
--- OUTSIDE RECORDS SUMMARY | 2025-02-20 10:22 | XMS_ITS | Clinical Summary ---
Author Organization [facility] Address [address] [place] [address] Care Team Providers Care Data Mining Analyst Name Role Phone Jamaal Garner Primary Care Provider [phone] Allergies No known active allergies Medications multivitamin [...] on file Legal Sex Male 7:37 AM [facility] Gender Identity Not on file Sexual Orientation [...] 2022 COVID-19 Vaccine (1 - 2023-25 season) 2025 Influenza Vaccine (#1) 2025 RSV Vaccine (SCDM) (1 - 1-dose 75+ series) 2047 Insurance CIG Care Teams Data Mining Analyst Relationship Specialty Start Date End Date Jamaal Garner PA [address] [place] [address] PCP - General Family Medicine 06/20/19
== END 2025-02-20 10:51 | disposition home or self-care (01) ==
LOC: HO.HMCH 09:46
DX: I10 Essential (primary) hypertension (principal); Z76.89 Persons encountering health services in other specified circumstances; F17.200 Nicotine dependence, unspecified, uncomplicated

== ENCOUNTER 2025-03-12 08:22 | Outpatient (REF) | payer OTHER, SELFPAY ==
[2025-03-12 08:36] LABS: MANUAL DIFF FLAG NO
--- OUTSIDE RECORDS SUMMARY | 2025-03-12 08:42 | XMS_ITS | Clinical Summary ---
Author Organization [facility] Address [address] [place] [address] Phone Care Team Providers Care Smart Grid Engineer Name Role Phone Physician, No Pcp [...] complete this topic Insurance [employer] Care Teams Smart Grid Engineer Relationship Specialty Start Date End Date Physician, No Pcp PCP - General 07/28/24
--- OUTSIDE RECORDS SUMMARY | 2025-03-12 08:42 | XMS_ITS | Clinical Summary ---
Author Organization [facility] Address [address] [place] [address] Care Team Providers Care Greens Picker Name Role Phone Jamaal Garner Primary Care Provider [phone] Allergies No known active allergies Medications multivitamin [...] 1972 Hepatitis C Screening 1972 Sigmoidoscopy 1972 MMR Vaccines (1 of 1 - Standard series) 1973 PHQ-9 Depression Screen 1984 Complete Annual HRA 1990 RUTHANN-7 Anxiety Screen 1990 DTaP,Tdap,and Td Vaccines (1 - Tdap) 1991 Hepatitis B Vaccines (1 of 3 - 19+ 3-dose series) 05/21 Pneumococcal Vaccine: 50+ Years (1 of 2 - PCV) 992 Annual Preventive Exam 06/20/2020 06/20/2019 Zoster Vaccines (1 of 2) 2022 COVID-19 Vaccine (1 - 2023- season) 2025 Influenza Vaccine (#1) 2025 RSV Vaccine (SCDM) (1 - 1-dose 75+ series) 2047 Insurance [employer] Care Teams Greens Picker Relationship Specialty Start Date End Date Jamaal Garner PA [address] [place] [address] PCP - General Family Medicine 06/20/19
[2025-03-12 08:47] LABS: Hematocrit 45.5 % (42.0-52.0); Hemoglobin 14.9 g/dl (14.0-18.0); Imm Gran Abs Auto 0.02 X10*3/uL (0.00-0.03); Imm Gran Pct Auto 0.3 % (0.0-0.4); Lymphocytes Absolute Auto 1.9 X10*3/uL (1.2-4.9); Mean Corpuscular HGB Conc 32.7 g/dl (31.0-36.0); Mean Corpuscular Hemoglobin 29.6 pg (27.0-33.0); Mean Corpuscular Volume 90.5 fL (80.0-98.0); NRBC Abs Auto 0.000 X10*3/uL (0.0-0.012); NRBC Pct Auto 0.0 /100WBC (0.0-0.2); Platelet Count 241 X10*3/uL (160-400); Red Blood Count 5.03 X10*6/uL (4.60-5.80); White Blood Count 6.2 X10*3/uL (4.8-10.8)
[2025-03-12 09:01] LABS: Appearance Urine Clear; Glucose Urine UA Negative (Negative); PH 7.0 (5.0-9.0); Specific Gravity - Urine 1.015 (1.005-1.025)
[2025-03-12 09:26] LABS: Alanine Aminotransferase 32 U/L (0-40); Albumin Level 4.6 g/dL (3.5-5.0); Alkaline Phosphatase 78 U/L (39-117); Anion Gap 12 (12-20); Aspartate Amino Transferase 36 U/L (5-37); Blood Urea Nitrogen 15 mg/dL (9-16); Calcium 9.2 mg/dL (8.4-10.2); Carbon Dioxide 29 mmol/L (22-29); Chloride 106 mmol/L (96-108); Cholesterol 156 mg/dL (<200); Estimated Glomerular Filt Rate > 60; HDL Cholesterol 44 mg/dL (>40); Potassium 3.9 mmol/L (3.3-5.1); Sodium 143 mmol/L (135-145); Total Protein 7.2 g/dL (6.5-8.0); Triglycerides 71 mg/dL (<150)
[2025-03-12 09:37] LABS: PSA,Total (Free>4and<10) 0.37 ng/mL (0.00-4.00)
== END 2025-03-12 08:23 | disposition home or self-care (01) ==
LOC: HO.LAB 08:22
DX: Z00.00 Encounter for general adult medical examination without abnormal findings (principal); Z12.5 Encounter for screening for malignant neoplasm of prostate; Z13.21 Encounter for screening for nutritional disorder; Z13.29 Encounter for screening for other suspected endocrine disorder; Z13.6 Encounter for screening for cardiovascular disorders
CPT/HCPCS: 36415; 80053; 80061; 81003; 82306; 84153; 84443; 85025

== ENCOUNTER 2025-04-10 13:59 | Outpatient (AMB) | payer OTHER, SELFPAY ==
--- NOTE | 2025-04-10 14:19 | A.OFFPC_ITS ---
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 Accompanied by: Self / Same As Patient Allergies No Known Allergies Allergy (Verified 04/10/25 14:40) Medication List - Last Reconciled 04/10/25 by LATISHA Guardado hydrochlorothiazide 25 mg PO DAILY 90 days varenicline tartrate (Chantix Starting Month Box) PO PER PKG DIR Tobacco use date assessed: 04/10/25 Dental Screening Dental Screen Date: 04/10/25 Did you have a dental visit in the last 12 months?: Yes Did you have a dental problem in the last 6 months where you did not have access to dental care?: No Was dental information given to patient?: Patient has dentist HPI Annual Exam HPI Details Dentist: up to date Eye:Has not had a eye exam in a while-encouraged to make an appt Snellen: Right: Left: Corrected vision: no STI screening: Colonoscopy: GI referral was placed at previous visit Pap Smer:n/a Flu: He had never had vaccine COVID: Never had covid Tdap: Given in office today Diet: Regular diet Exercise: Walks a lot Patient denies chest pain, shortness of breath, heart palpitation or dizziness Denies abdominal pain or change in bowel habits Denies any urinary symptoms PFSH Medical History Smoker No pertinent past medical history Family History Father Diabetes mellitus End stage renal disease Social History Household Members: None Housing: Apartment Alcohol intake: never Patient Tobacco Use Status: Current everyday Tobacco user Tobacco use type: Cigarette e-Cigarette/Vaping Use: Never Used Current occupational status: employed Current occupation: [employer] Cognitive needs: No Hearing needs: No Vision needs: No Questionnaire PHQ-9 Over the last 2 weeks, how often have you been bothered by any of the following problems? 1. Little interest or pleasure in doing things: not at all 2. Feeling down, depressed, or hopeless: not at all 3. Trouble falling or staying asleep, or sleeping too much: not at all 4. Feeling tired or having little energy: not at all 5. Poor appetite or overeating: not at all 6. Feeling bad about yourself - or that you are a failure or have let yourself or your family down: not at all 7. Trouble concentrating on things, such as reading the newspaper or watching television: not at all 8. Moving or speaking so slowly that other people could have noticed. Or the opposite - being so fidgety or restless that you have been moving around a lot more than usual: not at all 9. Thoughts that you would be better off or of hurting yourself in some way: not at all Total score: 0 Source: Developed by Drs. Jimbo Stauffer, Fidelia Uriarte, Julien John and colleagues, with an educational shiloh from [employer]. Thrive Questionnaire Date Thrive assessed: 04/10/25 I am a: Patient What is your living situation today?: I have a steady place to live Within the past 12 months, did the food you bought not last and you didn't have the money to get more?: Never true Within the past 12 months, did you worry whether your food would run out before you got money to buy more?: Never true Do you have trouble paying for medicines?: No Do you have trouble getting transportation to medical appointments?: No Do you have trouble paying your heating and electricity bill?: No Do you have trouble taking care of your child, family member or friend?: No Do you have trouble with day-to-day activities such as bathing, preparing meals, shopping, managing finances, etc.?: No Are you currently unemployed and looking for a job?: No Are you interested in more education?: No Please select the resources that you would like help with: None Currently or been in a relationship where the following occur: No concerns reported THRIVE Score: 0 AUDIT C Alcohol Use Questionnaire (AUDIT-C) 1. How often do you have a drink containing alcohol?: Never Total Score: 0 RUTHANN-7 AMB Questionnaire RUTHANN-7 Date RUTHANN - 7 assessed: 04/10/25 Feeling nervous, anxious, or on edge: 0 = Not at all Not being able to stop or control worryin = Not at all Worrying too much about different things: 0 = Not at all Trouble relaxin = Not at all Being so restless that it is hard to sit still: 0 = Not at all Becoming easily annoyed or irritable: 0 = Not at all Feeling afraid as if something awful might happen: 0 = Not at all Total RUTHANN-7 score (0-4 normal; 5-9 mild; 10-14 moderate; 15-21 severe): 0 Source: Developed by Drs. Jimbo Stauffer, Fidelia Uriarte, Julien John and colleagues, with an educational shiloh from [employer]. Review of Systems Const Denies headache(s) Eyes Denies loss of vision ENT Denies vertigo, Denies dizziness, Denies headache(s) and Denies sore throat Card Denies chest pain, Denies leg edema and Denies lightheadedness Resp Denies cough, Denies hemoptysis and Denies wheezing GI Denies abdominal pain, Denies melena, Denies constipation, Denies diarrhea and Denies vomiting Denies dysuria, Denies urinary frequency and Denies urinary urgency Musc Denies arthralgias, Denies joint swelling, Denies numbness and Denies tingling Neuro Denies Abnormal speech present, Denies behavioral changes, Denies vertigo, Denies dizziness, Denies headache(s), Denies loss of vision, Denies memory loss, Denies numbness and Denies tingling Psych Denies anxiety, Denies behavioral changes, Denies depression, Denies memory loss and Denies panic attacks Jose Daniel/Lymph Denies easy bleeding and Denies easy bruising Aller/Immun Denies wheezing Physical exam (Primary Care) Vital Signs: Last Vital Signs Pulse 85 04/10/25 14:20 Resp 18 04/10/25 14:20 BP 124/82 04/10/25 14:20 Pulse Ox 96 04/10/25 14:20 Oxygen Delivery Method Room Air 04/10/25 14:20 BMI result Body Mass Index 43.6 Tobacco/Smoking Status: Tobacco use Status Tobacco use date assessed 04/10/25 04/10/25 14:36 Patient Tobacco Use Status Current everyday Tobacco 04/10/25 14:20 Tobacco use type Cigarette 04/10/25 14:20 e-Cigarette/Vaping Use Never Used 04/10/25 14:20 PHQ-9: PHQ-9 Score PHQ-9: Total score 0 04/10/25 17:07 Thrive Assessment: Date of Thrive Assessment Date Thrive assessed 04/10/25 04/10/25 14:36 Currently or been in a relationship where the following occur: No concerns reported Const General: healthy appearing, no acute distress, alert and awake Nutritional Appearance: well nourished Orientation/consciousness: oriented to person, oriented to place and oriented to time HENMT Ears: TM's normal bilaterally General nose exam: Normal nasal mucous membranes and turbinates present Eyes Conjunctivae: conjunctivae normal Sclerae: sclerae normal Pupils: Equal, round and reactive pupils present Neck Neck: Yes no lymphadenopathy and Yes no JVD Thyroid: Thyroid normal Carotids: no bruits Resp Effort & Inspection: normal respiratory effort and not tachypneic Auscultation: no crackles, no rales, no rhonchi and no wheezes Cardio Rate: regular rate Rhythm: regular rhythm Heart sounds: no murmurs and normal S1 and S2 GI Palpation (GI): Soft to palpation, nontender, no hepatomegaly and no splenomegaly Auscultation: normal bowel sounds Skin General skin exam: no rashes or lesions noted and dry skin Neuro General: oriented to person, oriented to place and oriented to time Cranial nerves: Yes Equal, round and reactive pupils present Speech: No Abnormal speech present Gait exam (Neuro): Normal gait present Motor exam (neuro): no tremor noted Deep tendon reflexes (DTR's): Right triceps reflex intensity grade: 2+, Left triceps reflex intensity grade: 2+, Rt Biceps (C5, C6): 2+, Left biceps reflex intensity grade: 2+, Right brachioradialis reflex intensity grade: 2+, Left brachioradialis reflex intensity grade: 2+, Right patellar reflex intensity grade: 2+ and Left patellar reflex intensity grade: 2+ Extrem Right upper extremity: full ROM Left upper extremity: full ROM Right lower extremity: full ROM; no edema Left lower extremity: full ROM; no edema Psych Mental Status: mental status grossly normal Speech and movement: Normal speech and movement present Affect: normal affect Attitude: cooperative Thought process: Normal thought process present Immunizations Tenivac (PF) 5 Lf unit-2 Lf unit/0.5 mL intramuscular syringe Performing Provider: LATISHA Guardado [facility] Administered by: QUOC Pfeiffer on 04/10/25 15:02 Dose Route Admin Location Dispensed Lot Number Expiration Date [employer] 0.5 mL IM Left Deltoid 0.5 mL [id number] 07/19/26 09003-346-23 [employer] Total Dispensed Waste 0.5 mL 0 % VIS Given Date VIS Provided VIS Publication Date 04/10/25 Single Vaccine 20 Eligibility Eligibility Date Funding Source Not [facility] Eligible 04/10/25 Private Results Reviewed Results Reviewed: Laboratory Tests 03/12/25 03/12/25 08:32 08:34 WBC 6.2 RBC 5.03 Hgb 14.9 Hct 45.5 MCV 90.5 MCH 29.6 MCHC 32.7 RDW 13.2 Plt Count 241 MPV 9.7 Immature Gran % (Auto) 0.3 Neut % (Auto) 57.5 Lymph % (Auto) 30.0 Blount % (Auto) 10.6 Eos % (Auto) 0.8 Sodium 143 Potassium 3.9 Chloride 106 Carbon Dioxide 29 Anion Gap 12 BUN 15 Creatinine 0.99 Estimated GFR > 60 Fasting Glucose 102 H Calcium 9.2 Total Bilirubin 0.6 AST 36 ALT 32 Alkaline Phosphatase 78 Total Protein 7.2 Albumin 4.6 Triglycerides 71 Cholesterol 156 LDL Cholesterol, Calc 98 HDL Cholesterol 44 Total PSA 0.37 25-OH Vitamin D Total 32.1 TSH 0.37 Urine Color Yellow Urine Appearance Clear Urine pH 7.0 Ur Specific [place] 1.015 Urine Protein Negative Urine Glucose (UA) Negative Urine Ketones Negative Urine Blood Negative Urine Nitrite Negative Ur Leukocyte Esterase Negative Coding Level of Care Code Est Pt Prev Care 40-64y(14747) Diagnoses Annual physical exam Z00.00 Smoker F17.200 Morbid (severe) obesity due to excess calories E66.01 Hypertension, unspecified type I10 Hypertension type: unspecified Time Spent (min) 34 Assessment & Plan Assessment & Plan (1) Annual physical exam: Code(s): Z00.00 - Encounter for general adult medical examination without abnormal findings Category: Medical Plan: Preventative guidelines and recent labs reviewed with the patient. GI referral was placed at previous visit for colonoscopy. Encouraged the patient to get an up-to-date it eye exam. Tetanus shot given in office today. (2) Smoker: Code(s): F17.200 - Nicotine dependence, unspecified, uncomplicated Category: Social Hx Plan: Encouraged smoking cessation. Continue varencicline tartrate dose pack. Reports that he had significantly cut down on the amount that he was smoking before. (3) Morbid (severe) obesity due to excess calories: Code(s): E66.01 - Morbid (severe) obesity due to excess calories Category: Medical Plan: Encouraged to exercise for at least 30 minutes a day/5 days a week Healthy eating discussed. Encouraged to eat fruits/vegetables, protein- fish/baked chicken, and to avoid salty/fried foods, sweets, caffeine and carbohydrates. Encouraged to increase water intake 6-8 glasses a day (4) Hypertension: Code(s): I10 - Essential (primary) hypertension Category: Medical Qualifiers: Hypertension type: unspecified Qualified Code(s): I10 - Essential (primary) hypertension Plan: BLOOD PRESSURE 124/82 MM HG-goal systolic less than 130 mm hg Reinforced low-salt diet Continue hydrochlorothiazide 25 mg daily Orders: Orders Td Immunization Today Z23 - Encounter for immunization
[2025-04-10 14:20] VITALS: BP 124/82; PULSE 85; RESP 18; O2SAT 96; BMI 43.6
--- OUTSIDE RECORDS SUMMARY | 2025-04-10 14:25 | XMS_ITS | Clinical Summary ---
Author Organization [facility] Address [address] [place] [address] Phone Care Team Providers Care Charge Manager Name Role Phone Physician, No Pcp Primary [...] Depression Screening 05/21/2024 COVID-19 Vaccine (1 - 2024-2 6 season) 2025 Influenza Vaccine (#1) 2025 RSV [...] complete this topic Insurance [employer] Care Teams Charge Manager Relationship Specialty Start Date End Date Physician, No Pcp PCP - General 07/28/24
--- OUTSIDE RECORDS SUMMARY | 2025-04-10 14:25 | XMS_ITS | Clinical Summary ---
Author Organization [facility] Address [address] [place] [address] Care Team Providers Care Packing And Shipping Clerk Name Role Phone Jamaal Garner Primary Care Provider [phone] Allergies No known active allergies Medications multivitamin [...] on file Legal Sex Male 7:37 AM [facility] Gender Identity Not on file Sexual Orientation [...] 75+ series) 2047 Insurance [employer] Care Teams Packing And Shipping Clerk Relationship Specialty Start Date End Date Jamaal Garner PA [address] [place] [address] PCP - General Family Medicine 06/20/19
== END 2025-04-10 15:10 | disposition home or self-care (01) ==
LOC: HO.HMCH 14:00
DX: Z00.00 Encounter for general adult medical examination without abnormal findings (principal); F17.200 Nicotine dependence, unspecified, uncomplicated; E66.01 Morbid (severe) obesity due to excess calories; I10 Essential (primary) hypertension; Z23 Encounter for immunization; Z68.43 Body mass index [BMI] 50.0-59.9, adult

== ENCOUNTER → 2025-04-10 13:59 | Outpatient (BNVA) | payer OTHER, SELFPAY | DX: Z23 Encounter for immunization (principal); Z00.00 Encounter for general adult medical examination without abnormal findings; E66.01 Morbid (severe) obesity due to excess calories; F17.200 Nicotine dependence, unspecified, uncomplicated; Z68.41 Body mass index [BMI] 40.0-44.9, adult; Z79.899 Other long term (current) drug therapy | CPT/HCPCS: 90471; 90714; 96127 ==